=== PATIENT | male | born 1935 | race African-American/Black ===

== ENCOUNTER 2017-06-18 11:42 | Emergency (ER) | payer OTHER ==
[2017-06-18] MEDS ORDERED: NA CHLORIDE 0.9% 1,000 ML ONE (12:05)
--- NOTE | 2017-06-18 12:13 | RAD REPORT ---
EXAM DESCRIPTION: CT - Head Brain Wo Cont - 06/18/2017 12:00 pm CLINICAL HISTORY: Altered consciousness COMPARISON: 03/07/2017 TECHNIQUE: All CT scans are performed using dose optimization technique as appropriate and may inclu de automated exposure control or mA/KV adjustment according to patient size. FINDINGS: No intracranial hemorrhage, hydrocephalus or extra-axial fluid collection.Mild generalized brain atrophy is present with mild periventricular and deep white matter chronic microvascular ische demi changes.No areas of brain edema or evidence of midline shift. The paranasal sinuses and mastoids are clear. The calvarium is intact. IMPRESSION: No acute intracranial abnormality.
[2017-06-18 12:14] LABS: Absolute Lymphocytes (CBC) 0.6 K/uL (0.7-4.9); Absolute Monocytes 0.8 K/uL (0.1-1.3); Absolute Neutrophil 6.1 K/uL (1.8-8.0); Basophils % 0.5 % (0-1.3); Hematocrit 32.3 % (39.6-49.0); Lymphocytes % 8.1 % (15.3-44.8); MCH 28.5 pg (27.0-35.0); MCV 88.1 fL (80-100); MPV 9.3 fL (7.6-11.3); Monocytes % 9.8 % (3.3-12.3); RBC Red Blood Cell Count 3.67 M/uL (4.33-5.43)
[2017-06-18 12:15] LABS: Potassium 3.5 mEq/L (3.6-5.0); Protime INR 1.1
[2017-06-18 12:21] LABS: Albumin 3.9 g/dL (3.2-5.5); Bilirubin Direct 0.1 mg/dL (0-0.2); Bilirubin Total 0.7 mg/dL (0.3-1.2); Magnesium 1.7 mg/dL (1.8-2.5)
[2017-06-18 12:24] LABS: CKMB Creatine Kinase MB 4.9 ng/ml (0.3-4.0)
--- NOTE | 2017-06-18 12:39 | RAD REPORT ---
EXAM DESCRIPTION: RAD - Chest Single View - 06/18/2017 12:30 pm CLINICAL HISTORY: Lethargy, cough, altered mental status COMPARISON: March 07 TECHNIQUE: AP portable chest image was obtained 1215 hours . FINDINGS: Lungs are clear. Heart size is upper normal to slightly enlarged but stable from prior camelia ging. No vascular engorgement. Trachea is midline. Interstitial markings are similar to the compariso n. No measurable pleural effusion and no pneumothorax. No gross bony abnormality seen. No acute aorti c findings suspected. IMPRESSION: No acute cardiopulmonary process. No significant change from comparison.
--- NOTE | 2017-06-18 13:05 | EDPHYS ---
Physician Documentation [facility] Name: Ramon Rothman Age: 82 yrs Sex: Male : 1935 Arrival Date: 06/18/2017 Time: 11:44 Bed 2 Private MD: ED Physician Ashish Haile HPI: 06/18 11:46 This 82 yrs old Black Male presents to ER via Unassigned with complaints of weakness, michelle hypotension and ams. 11:46 hypotension. The patient presents with confusion. Onset: The symptoms/episode michelle began/occurred just prior to arrival, this morning. Possible causes: unknown. Associated signs and symptoms: The patient has no apparent associated signs or symptoms. Patient's baseline: Neuro: alert and fully oriented. Severity of symptoms: At their worst the symptoms were moderate this morning. Historical: - Allergies: 12:00 No Known Allergies; ss - PMHx: 12:00 chronic pain - leg; Diabetes - NIDDM; CVA; ss - PSHx: 12:00 "prostate"; Appendectomy; ss - Immunization history:: Adult Immunizations up to date. - Social history:: Smoking status: Patient/guardian denies using tobacco. - Family history:: not pertinent. ROS: 11:46 Constitutional: Negative for fever, chills, and weight loss, Eyes: Negative for injury, michelle pain, redness, and discharge, ENT: Negative for injury, pain, and discharge, Neck: Negative for injury, pain, and swelling, Cardiovascular: Negative for chest pain, palpitations, and edema, Respiratory: Negative for shortness of breath, cough, wheezing, and pleuritic chest pain, Abdomen/GI: Negative for abdominal pain, nausea, vomiting, diarrhea, and constipation, Back: Negative for injury and pain, : Negative for injury, bleeding, discharge, and swelling, MS/Extremity: Negative for injury and deformity, Skin: Negative for injury, rash, and discoloration, Psych: Negative for depression, anxiety, suicide ideation, homicidal ideation, and hallucinations, Allergy/Immunology: Negative for hives, rash, and allergies, Endocrine: Negative for neck swelling, polydipsia, polyuria, polyphagia, and marked weight changes, Hematologic/Lymphatic: Negative for swollen nodes, abnormal bleeding, and unusual bruising. 11:46 Neuro: Positive for weakness. Exam: 11:46 Constitutional: This is a well developed, well nourished patient who is awake, alert, michelle and in no acute distress. Head/Face: Normocephalic, atraumatic. Eyes: Pupils equal round and reactive to light, extra-ocular motions intact. Lids and lashes normal. Conjunctiva and sclera are non-icteric and not injected. Cornea within normal limits. Periorbital areas with no swelling, redness, or edema. ENT: Nares patent. No nasal discharge, no septal abnormalities noted. Tympanic membranes are normal and external auditory canals are clear. Oropharynx with no redness, swelling, or masses, exudates, or evidence of obstruction, uvula midline. Mucous membranes moist. Neck: Trachea midline, no thyromegaly or masses palpated, and no cervical lymphadenopathy. Supple, full range of motion without nuchal rigidity, or vertebral point tenderness. No Meningismus. Chest/axilla: Normal chest wall appearance and motion. Nontender with no deformity. No lesions are appreciated. Cardiovascular: Regular rate and rhythm with a normal S1 and S2. No gallops, murmurs, or rubs. Normal PMI, no JVD. No pulse deficits. Respiratory: Lungs have equal breath sounds bilaterally, clear to auscultation and percussion. No rales, rhonchi or wheezes noted. No increased work of breathing, no retractions or nasal flaring. Abdomen/GI: Soft, non-tender, with normal bowel sounds. No distension or tympany. No guarding or rebound. No evidence of tenderness throughout. Back: No spinal tenderness. No costovertebral tenderness. Full range of motion. Male : Normal genitalia with no discharge or lesions. Skin: Warm, dry with normal turgor. Normal color with no rashes, no lesions, and no evidence of cellulitis. MS/ Extremity: Pulses equal, no cyanosis. Neurovascular intact. Full, normal range of motion. Neuro: Awake and alert, GCS 15, oriented to person, place, time, and situation. Cranial nerves II-XII grossly intact. Motor strength 5/5 in all extremities. Sensory grossly intact. Cerebellar exam normal. Normal gait. Psych: Awake, alert, with orientation to person, place and time. Behavior, mood, and affect are within normal limits. Vital Signs: 12:00 BP 100 / 56; Pulse 58; Resp 16; Temp 97.6(O); Pulse Ox 100% on R/A; Weight 108.86 kg; ss Height 5 ft. 11 in. (180.34 cm); Pain 0/10; 14:17 BP 111 / 72; Pulse 73; Resp 17; Pulse Ox 97% on R/A; bm6 15:02 BP 113 / 72; Pulse 62; Resp 17; Pulse Ox 98% on R/A; Pain 0/10; ss 12:00 Body Mass Index 33.47 (108.86 kg, 180.34 cm) MDM: 11:44 Patient medically screened. [facility] 11:48 Data reviewed: vital signs, nurses notes, lab test result(s), EKG, radiologic studies, [facility] CT scan, plain films. 06/18 11:45 Order name: Basic Metabolic Panel; Complete Time: 12:31 [facility] 06/18 11:45 Order name: BNP; Complete Time: 12:31 [facility] 06/18 11:45 Order name: CBC with Diff; Complete Time: 12:31 [facility] 06/18 11:45 Order name: Ckmb; Complete Time: 12:31 [facility] 06/18 11:45 Order name: CPK; Complete Time: 12:31 [facility] 06/18 11:45 Order name: LFT's; Complete Time: 12:31 [facility] 06/18 11:45 Order name: Magnesium; Complete Time: 12:31 [facility] 06/18 11:45 Order name: PT-INR; Complete Time: 12:31 [facility] 06/18 11:45 Order name: Ptt, Activated; Complete Time: 12:31 [facility] 06/18 11:45 Order name: Troponin (emerg Dept Use Only); Complete Time: 12:31 [facility] 06/18 11:45 Order name: XRAY Chest (1 view); Complete Time: 12:59 [facility] 06/18 11:45 Order name: CT Head Brain wo Cont; Complete Time: 12:31 [facility] 06/18 11:45 Order name: Urine Culture [facility] 06/18 14:12 Order name: Urine Dipstick--Ancillary (enter results) 06/18 11:45 Order name: EKG; Complete Time: 11:46 [facility] 06/18 11:45 Order name: Cardiac monitoring; Complete Time: 12:09 [facility] 06/18 11:45 Order name: EKG - Nurse/Tech; Complete Time: 12:10 [facility] 06/18 11:45 Order name: IV Saline Lock; Complete Time: 12:10 [facility] 06/18 11:45 Order name: Labs collected and sent; Complete Time: 12:10 [facility] 06/18 11:45 Order name: O2 Per Protocol; Complete Time: 12:10 [facility] 06/18 11:45 Order name: O2 Sat Monitoring; Complete Time: 12:10 [facility] 06/18 11:45 Order name: Urine Dipstick-Ancillary (obtain specimen); Complete Time: 14: [facility] 06/18 13:11 Order name: Echo with Doppler EDMS Administered Medications: 12:09 Drug: NS 0.9% 500 ml Route: IV; Rate: bolus; Site: right antecubital; ss 13:15 Follow up: IV Status: Completed infusion; IV Intake: 500ml ss 13:16 Drug: NS 0.9% 1000 ml Route: IV; Rate: 125 ml/hr; Site: right antecubital; ss 14:12 Follow up: IV Status: Infusion continued upon admission ss 14:07 Drug: Rocephin - (cefTRIAXone) 1 grams Route: IVPB; Infused Over: 30 mins; Site: right ss antecubital; 15:21 Follow up: IV Status: Completed infusion; Completed infusiongiven IVP over two minutes ss per pharmacy protocol 14:12 Drug: Magnesium Sulfate 1 grams Route: IVPB; Infused Over: 1 hrs; Site: right ss antecubital; 15:22 Follow up: IV Status: Completed infusion ss Point of Care Testing: Blood Glucose: 12:00 Blood Glucose: 119 mg/dL; Ranges: Critical Glucose Levels:Adult <50 mg/dl or >400 mg/dl <40 mg/dl or >180 mg/dl Disposition: 06/18/17 14:41 Patient has left against medical advice. Impression: Syncope and collapse, Unspecified kidney failure, Hypotension, Type 2 diabetes mellitus. - Patients states they are going to Home. - Condition is Fair. Follow up: Private Physician; When: Upon discharge from the Emergency Department. - Problem is new. - Symptoms have improved. Signatures: Dispatcher [employer] EDMS Ashish Haile MD MD cha Smirch, Shelby RN RN ss Corrections: (The following items were deleted from the chart) 13:28 13:04 Hospitalization Ordered by Titus Reyes DO for Observation. Preliminary michelle diagnosis is Hypotension; Syncope and collapse; Hypomagnesemia; Unspecified kidney failure; Anemia, unspecified. Bed requested for Telemetry/MedSurg (observation). Status is Observation. Condition is Fair. Problem is new. Symptoms have improved. UTI on Admission? No. michelle 14:01 12:31 E[place] ordered. michelle ss 14:39 13:28 06/18/2017 13:04 Hospitalization Ordered by Titus Reyes DO for Observation. michelle Preliminary diagnosis is Hypotension; Syncope and collapse; Hypomagnesemia; Unspecified kidney failure; Anemia, unspecified; Cystitis. Bed requested for Telemetry/MedSurg (observation). Status is Observation. Condition is Fair. Problem is new. Symptoms have improved. UTI on Admission? Yes. michelle 15:22 14:41 06/18/2017 14:41 Patients has left against medical advice. Impression: Syncope ss and collapse; Unspecified kidney failure; Hypotension; Type 2 diabetes mellitus. Patient states they are going to Home. Condition is Fair. Follow up: Private Physician; When: Upon discharge from the Emergency Department. Problem is new. Symptoms have improved. michelle
--- NOTE | 2017-06-18 13:05 | ER ---
Nurse's Notes [facility] Name: Ramon Rothman Age: 82 yrs Sex: Male : 1935 Arrival Date: 06/18/2017 Time: 11:44 Bed 2 Private MD: Diagnosis: Syncope and collapse;Unspecified kidney failure;Hypotension;Type 2 diabetes mellitus Presentation: 06/18 11:44 Presenting complaint: EMS states: Patient was pulled over on the side of the road in ss vehicle, reportedly "sleeping" per patient. On arrival, EMS reports that patient was awake, lethargic with BP of 68/30 with a pulse of 55 and after 200 mL of NS repeat BP is 100/60. Pt states, "I just got tired so I thought it was unsafe to drive, so I pulled over." Pt states he was on his way to a senior day. Pt has no complaints at this time. Transition of care: patient was not received from another setting of care. Onset of symptoms was June 18, 2017. Initial Sepsis Screen: Does the patient meet any 2 criteria? No. Patient's initial sepsis screen is negative. Does the patient have a suspected source of infection? No. Patient's initial sepsis screen is negative. Note Patient reports he felt just fine yesterday and early this morning, has not eaten, but has taken all of his usual medications. Care prior to arrival: Medication(s) given: NS approx 200 mL IV initiated. 20 GA, in the right antecubital area, Glucose check: 156. 11:44 Acuity: CHANDRIKA 3 ss 11:44 Method Of Arrival: EMS: [facility] Historical: - Allergies: 12:00 No Known Allergies; ss - PMHx: 12:00 chronic pain - leg; Diabetes - NIDDM; CVA; ss - PSHx: 12:00 "prostate"; Appendectomy; ss - Immunization history:: Adult Immunizations up to date. - Social history:: Smoking status: Patient/guardian denies using tobacco. - Family history:: not pertinent. Screenin:02 Abuse screen: Denies threats or abuse. Denies injuries from another. Nutritional ss screening: No deficits noted. Tuberculosis screening: Never had TB. Fall Risk No fall in past 12 months (0 pts). Secondary diagnosis (15 points) CVA, general weakness/ fatigue/ low BP. IV access (20 points). Ambulatory Aid- None/Bed Rest/Nurse Assist (0 pts). Gait- Normal/Bed Rest/Wheelchair (0 pts) Mental Status- Oriented to own ability (0 pts). Assessment: 11:46 General: Appears in no apparent distress. comfortable, Behavior is calm, cooperative, ss Denies fever, feeling ill, fatigue, chills. Pain: Denies pain. Neuro: Level of Consciousness is awake, alert, obeys commands, Oriented to person, place, time, situation, Cut Off Saw Operator are equal bilaterally Speech is normal, Pupils are PERRLA. Cardiovascular: Capillary refill < 3 seconds is brisk in bilateral fingers. Respiratory: Airway is patent Trachea midline Respiratory effort is even, unlabored, Respiratory pattern is regular, symmetrical, Breath sounds are clear in right upper lobe, left upper lobe, right middle lobe, left posterior upper lobe, right posterior upper lobe and right posterior middle lobe Breath sounds are diminished in left posterior lower lobe and right posterior lower lobe Denies cough, shortness of breath pain with respiration, pain with cough, pain with movement. GI: Abdomen is non-distended, Patient currently denies abdominal pain, diarrhea, nausea, vomiting. : No signs and/or symptoms were reported regarding the genitourinary system. EENT: Reddened sclera to R eye. Pt denies pain/ itching to affected eye. Derm: Skin is intact, Skin is dry, Skin is normal, Skin temperature is warm. Musculoskeletal: Circulation, motion, and sensation intact. Range of motion: intact in all extremities, Swelling absent. 11:56 Reassessment: patient to CT at this time via stretcher and hvac controls technicianJacquie sawant. 12:03 Reassessment: Patient back from CT at this time. ss 13:14 Reassessment: Patient appears in no apparent distress at this time. Patient and/or ss family updated on plan of care and expected duration. Pain level reassessed. Patient is alert, oriented x 3, equal unlabored respirations, skin warm/dry/pink. Patient denies pain at this time. Patient states feeling better. Patient states symptoms have improved. 14:00 Reassessment: updated patient on plan of care. Patient states he does not want to be ss admitted whether or not it is the doctor's recommendation. Dr. Haile notified. Patient is polite and cooperative, but simply does not want to be admitted to the hospital for further evaluation. 14:27 Reassessment: Still awaiting for Dr. Haile to update patient on POC to determine whether patient is to stay in hospital or leave AMA. 14:47 Reassessment: Patient insisting on leaving AMA still after speaking with Dr. Haile. Attempted to call Anu () at [phone], no answer and unable to leave VM. 15:02 Reassessment: awaiting for magnesium to finish infusing prior to leaving AMA. Patient ss still attempting to find a ride at this time. Vital Signs: 12:00 BP 100 / 56; Pulse 58; Resp 16; Temp 97.6(O); Pulse Ox 100% on R/A; Weight 108.86 kg; ss Height 5 ft. 11 in. (180.34 cm); Pain 0/10; 14:17 BP 111 / 72; Pulse 73; Resp 17; Pulse Ox 97% on R/A; bm6 15:02 BP 113 / 72; Pulse 62; Resp 17; Pulse Ox 98% on R/A; Pain 0/10; ss 12:00 Body Mass Index 33.47 (108.86 kg, 180.34 cm) Vitals: 11:46 Cardiac Rhythm Assessment Sinus shelton. ED Course: 11:44 Patient arrived in ED. ss 11:44 Ashish Haile MD is Attending Physician. [facility] 11:47 Mayr Rose, GREY is Primary Nurse. ss 11:50 Maintain EMS IV. Dressing intact. Good blood return noted. Site clean \\T\\ dry. Gauge \\T\\ ss site: 20 gauge in R AC. IV is patent, with fluids infusing freely, with good blood return, Flushed right antecubital with 5 ml normal saline. Patient maintains SpO2 saturation greater than 95% on room air. 11:53 EKG done, by medical technologist microbiology. reviewed by Ashish Haile MD. at1 11:58 Triage completed. ss 12:00 CT Head Brain wo Cont In Process Unspecified. EDMS 12:00 CT completed. Patient tolerated procedure well. Patient moved to CT via stretcher. sj Patient moved back from CT. 12:00 Arm band placed on right wrist. ss 12:02 Patient has correct armband on for positive identification. Placed in gown. Bed in low ss position. Call light in reach. Side rails up X2. certified caregiver on. Pulse ox on. NIBP on. 12:31 XRAY Chest (1 view) In Process Unspecified. [facility] 13:03 Titus Reyes DO is Hospitalizing Provider. [facility] 13:31 Bladder scan completed. 64 (post void). 15:20 No provider procedures requiring assistance completed. IV discontinued, intact, ss bleeding controlled, No redness/swelling at site. Pressure dressing applied. Administered Medications: 12:09 Drug: NS 0.9% 500 ml Route: IV; Rate: bolus; Site: right antecubital; ss 13:15 Follow up: IV Status: Completed infusion; IV Intake: 500ml ss 13:16 Drug: NS 0.9% 1000 ml Route: IV; Rate: 125 ml/hr; Site: right antecubital; ss 14:12 Follow up: IV Status: Infusion continued upon admission 14:07 Drug: Rocephin - (cefTRIAXone) 1 grams Route: IVPB; Infused Over: 30 mins; Site: right ss antecubital; 15:21 Follow up: IV Status: Completed infusion; Completed infusiongiven IVP over two minutes ss per pharmacy protocol 14:12 Drug: Magnesium Sulfate 1 grams Route: IVPB; Infused Over: 1 hrs; Site: right ss antecubital; 15:22 Follow up: IV Status: Completed infusion Point of Care Testing: Blood Glucose: 12:00 Blood Glucose: 119 mg/dL; Ranges: Intake: 13:15 IV: 500ml; Total: 500ml. Outcome: 13:04 Decision to Hospitalize by Provider. [facility] 15:20 AMA AMA form signed 15:20 Condition: stable 15:20 Discharge instructions given to patient, Instructed on follow up and referral plans. Demonstrated understanding of instructions, follow-up care. 15:22 Patient left the ED. ss Addendum: 06/21/2017 08:12 Addendum: Culture Results: Positive urine culture. No further action required. Other: i w pt had no urinary symptoms at time of service, pt was advised to remain in hospital for further evaluation and refused, pt left AMA. Signatures: Dispatcher [employer] EDAR Ashish Haile MD MD cha Jones, Susan Lety Domínguez RN RN Mary Rose RN RN Bella cifuentes, dental front office assistant EKG Tat1 Hardik Wright [email or web address]
[2017-06-18] MEDS ORDERED: MAGNESIUM SULFATE 1 gm IVPB 1 GM/100 ML BAG IV ONE (14:03)
[2017-06-18] MEDS ORDERED: CEFTRIAXONE/SWI 1gm 1 GM/10 ML SYR ONE (14:04)
--- NOTE | 2017-06-18 14:35 | EKG ---
Test Date: 2017-06-18 Test Time: 11:35:46 Quality Management Coordinator: QUINN MEASUREMENT RESULTS: Intervals: Rate: 55 LA: 180 QRSD: 130 QT: 498 QTc: 476 [place]: P: 37 LA: 180 QRS: -22 T: 67 INTERPRETIVE STATEMENTS: Sinus bradycardia Nonspecific intraventricular block Abnormal ECG Compared to ECG 03/08/2017 07:07:36 Sinus rhythm no longer present Left bundle-branch block no longer present Electronically Signed On 06-18-17 14:33:42 CDT by González Laurent
[2017-06-18 15:48] VITALS: TEMP 97.6
[2017-06-18 15:51] VITALS: BP 113/72; O2SAT 98
[2017-06-18 16:08] LABS: Urine Blood NEGATIVE (NEG); Urine Glucose NEGATIVE (NEG); Urine Protein TRACE (NEG)
--- NOTE | 2017-06-19 08:08 | ECHO ---
HEIGHT: 5 ft 11 in WEIGHT: 240 lb 0 oz DATE OF STUDY: 06/18/[address]: 2-DIMENSIONAL: YES M.MODE: YES DOPPLER: YES COLOR FLOW: YES TDS: NO PORTABLE: NO DEFINITY: NO BUBBLE STUDY: NO DIAGNOSIS: CHEST PAIN CARDIAC HISTORY: CATHERIZATION: NO SURGERY: NO PROSTHETIC VALVE: NO PACEMAKER: NO MEASUREMENTS (cm) DIASTOLIC (NORMALS) SYSTOLIC (NORMALS) IVSd 1.4 (0.6-1.2) LA Diam 3.5 (1.9-4.0) LVEF 50-55% LVIDd 5.1 (3.5-5.7) LVIDs (2.0-3.5) %FS % LVPWd 1.2 (0.6-1.2) Ao Diam 3.2 (2.0-3.7) 2 DIMENSIONAL ASSESSMENT: RIGHT ATRIUM: NORMAL LEFT ATRIUM: NORMAL RIGHT VENTRICLE: NORMAL LEFT VENTRICLE: LEFT VENTRICULAR HYPERTROPHY TRICUSPID VALVE: NORMAL MITRAL VALVE: NORMAL PULMONIC VALVE: NORMAL AORTIC VALVE: NORMAL PERICARDIAL EFFUSION: NONE AORTIC ROOT: NORMAL LEFT VENTRICULAR WALL MOTION: NORMAL DOPPLER/COLOR FLOW: MILD MITRAL AND TRICUSPID REGURGITATION. NORMAL RIGHT VENTRICULAR SYSTOLIC PRESSURE. IMPAIRED LEFT VENTRICULAR RELAXATION. COMMENTS: NORMAL LEFT VENTRICULAR EJECTION FRACTION. LEFT VENTRIVULAR HYPERTROPHY. MILD MITRAL AND TRICUSPID REGURGITATION. TECHNOLOGIST: ARNULFO GALLAGHER RDCS
== END 2017-06-18 15:22 | disposition left against medical advice (07) ==
LOC: ER 11:42 → UNDOADMOB 13:06 → ERHOLD 13:06 → ER 15:22
DX: I95.9 Hypotension, unspecified (principal); R55 Syncope and collapse; N19 Unspecified kidney failure; E11.9 Type 2 diabetes mellitus without complications; Z86.73 Personal history of transient ischemic attack (TIA), and cerebral infarction without residual deficits
CPT/HCPCS: 36415; 70450; 71045; 80048; 80076; 81003; 82550; 82553; 83735; 83880; 84484; 85025; 85610; 85730; 87086; 87088; 93005; 93306; 96361; 96365; 99285; J0696; J3475; J7030; 82962; 87077; 87186; 96368

== ENCOUNTER 2017-07-26 10:57 | Emergency (ER) | payer OTHER ==
[2017-07-26 11:59] LABS: Absolute Lymphocytes (CBC) 0.6 K/uL (0.7-4.9); Absolute Monocytes 0.9 K/uL (0.1-1.3); Absolute Neutrophil 7.9 K/uL (1.8-8.0); Basophils % 0.3 % (0-1.3); Eosinophils % 2.1 % (0-4.4); Hematocrit 30.7 % (39.6-49.0); Lymphocytes % 6.2 % (15.3-44.8); MCH 28.9 pg (27.0-35.0); MCV 87.6 fL (80-100); MPV 9.6 fL (7.6-11.3); Monocytes % 9.1 % (3.3-12.3)
[2017-07-26 12:05] LABS: Protime INR 1.07
--- NOTE | 2017-07-26 12:13 | RAD REPORT ---
EXAM DESCRIPTION: RAD - Chest Single View - 07/26/2017 12:04 pm CLINICAL HISTORY: Chest pain. COMPARISON: 06/18/2017 FINDINGS: Portable technique limits examination quality. The lungs are grossly clear. The heart is normal in size. No displaced fractures. IMPRESSION: No acute intrathoracic process suspected.
[2017-07-26 12:21] LABS: Albumin 3.7 g/dL (3.2-5.5); Bilirubin Direct 0.1 mg/dL (0-0.2); Bilirubin Total 0.7 mg/dL (0.3-1.2); Magnesium 2.2 mg/dL (1.8-2.5); Protein, Total 6.7 g/dL (6.0-8.3)
[2017-07-26 12:25] LABS: CKMB Creatine Kinase MB 3.4 ng/ml (0.3-4.0)
[2017-07-26 13:10] LABS: Potassium 2.8 mEq/L (3.6-5.0)
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
[2017-07-26] MEDS ORDERED: POTASSIUM CL SA 10 MEQ TAB PO ONE (13:38)
[2017-07-26] MEDS ORDERED: POTASSIUM 25 MEQ EFFERV TAB ONE (13:39)
[2017-07-26 13:49] VITALS: TEMP 97.2; O2SAT 97
[2017-07-26 13:50] VITALS: BP 90/47
--- NOTE | 2017-07-27 07:58 | EKG ---
Test Date: 2017-07-26 Test Time: 10:52:41 Overhead Crane Operator: MEASUREMENT RESULTS: Intervals: Rate: 67 MS: 112 QRSD: 180 QT: 524 QTc: 553 [place]: P: MS: 112 QRS: -42 T: 80 INTERPRETIVE STATEMENTS: Normal sinus rhythm Left axis deviation Left bundle branch block Abnormal ECG Compared to ECG 06/18/2017 11:35:46 Left-axis deviation now present Left bundle-branch block now present Sinus bradycardia no longer present Electronically Signed On 07-27-17 07:55:13 CDT by González Laurent
== END 2017-07-26 13:45 | disposition home or self-care (01) ==
LOC: ER 10:57
DX: N19 Unspecified kidney failure (principal); E87.6 Hypokalemia
CPT/HCPCS: 36415; 71045; 80048; 80076; 82550; 82553; 82962; 83735; 83880; 84484; 85025; 85610; 85730; 93005; 99284

== ENCOUNTER 2018-05-19 20:24 | Observation (INO) | payer OTHER ==
--- OUTSIDE RECORDS SUMMARY | 2018-05-19 20:26 | XMS REPORT ---
:1935 Author Organization [facility] Address [address] [place] [address] [address] [place] [address] Care Team Providers Name Role Phone Unavailable Unavailable Unavailable Problems This patient has no known problems. Allergies, Adverse Reactions, Alerts Allergy Allergy Status Severity Reaction(s) Onset Inactive Treating Comments Name Type Date Date Clinician No Known DA Active U 2013-03 Allergies -28 00:00:0 0 Medications This patient has no known medications.
[2018-05-19] MEDS ORDERED: MIDAZOLAM HCL 2 MG/2 ML INJ ONE (20:59)
[2018-05-19] MEDS ORDERED: NA CHLORIDE 0.9% 1,000 ML ONE ×2 (21:25→23:40)
[2018-05-19 21:28] LABS: Absolute Lymphocytes (CBC) 0.7 K/uL (0.7-4.9); Absolute Monocytes 0.5 K/uL (0.1-1.3); Absolute Neutrophil 7.5 K/uL (1.8-8.0); Basophils % 0.5 % (0-1.3); Eosinophils % 1.6 % (0-4.4); Hematocrit 29.8 % (39.6-49.0); Lymphocytes % 8.2 % (15.3-44.8); MPV 8.9 fL (7.6-11.3); Monocytes % 5.8 % (3.3-12.3); RBC Red Blood Cell Count 3.52 M/uL (4.33-5.43)
[2018-05-19 21:33] LABS: Albumin 3.7 g/dL (3.4-5.0); Bilirubin Direct 0.3 mg/dL (0-0.2); Bilirubin Total 0.8 mg/dL (0.2-1.0); CKMB Creatine Kinase MB 3.5 ng/mL (0.3-3.6); Potassium 3.4 mmol/L (3.5-5.1); Protein, Total 8.4 g/dL (6.4-8.2); Troponin (Emerg Dept Use Only) 0.11 ng/mL (0.0-0.045)
--- NOTE | 2018-05-19 21:34 | ER ---
Nurse's Notes [facility] Name: Ramon Rothman Age: 82 yrs Sex: Male : 1935 Arrival Date: 05/19/2018 Time: 20:27 Bed 3 Private MD: Diagnosis: Lobar pneumonia, unspecified organism;Atrial fibrillation and flutter;Sepsis, unspecified organism Presentation: 05/19 20:40 Presenting complaint: Patient states: SOB X1 week, increased tonight. Transition of ak1 care: patient was not received from another setting of care. Onset of symptoms is unknown. Risk Assessment: Do you want to hurt yourself or someone else? Patient reports no desire to harm self or others. Care prior to arrival: None. 20:40 Method Of Arrival: Wheelchair ak1 20:40 Acuity: CHANDRIKA 1 ak1 20:45 Initial Sepsis Screen: Does the patient meet any 2 criteria? Systolic BP < 90 mmHg. HR ao > 90 bpm. Yes Does the patient have a suspected source of infection? No. Patient's initial sepsis screen is negative. Triage Assessment: 20:41 General: Appears distressed, slender, Behavior is calm, cooperative. Pain: Denies pain. ak1 22:38 Respiratory: Reports shortness of breath at rest Onset: The symptoms/episode ao began/occurred at an unknown time. the patient has severe shortness of breath. Historical: - Allergies: 20:41 No Known Allergies; ak1 - PMHx: 20:41 chronic pain - leg; CVA; Diabetes - NIDDM; ak1 - PSHx: 20:41 "prostate"; Appendectomy; unknown cardiac sx; ak1 - Immunization history:: Adult Immunizations unknown. - Social history:: Smoking status: Patient/guardian denies using tobacco. - Ebola Screening: : No symptoms or risks identified at this time. Screenin:36 Abuse screen: Denies threats or abuse. Denies injuries from another. Nutritional ao screening: No deficits noted. Tuberculosis screening: No symptoms or risk factors identified. Fall Risk Secondary diagnosis (15 points) IV access (20 points). Ambulatory Aid- None/Bed Rest/Nurse Assist (0 pts). Gait- Weak (10 pts.). Mental Status- Overestimates/Forgets Limitations (15 pts.). Assessment: 20:45 General: Appears distressed, well groomed, well developed, Behavior is cooperative, ao drowsy, restless. Pain: Complains of pain in chest Quality of pain is described as pressure. Neuro: Level of Consciousness is awake, alert, obeys commands, Oriented to person, place, situation, Moves all extremities. Full function Weakness Speech is normal. Cardiovascular: Reports chest pain, shortness of breath, Capillary refill is > 3 seconds is sluggish Clubbing of nail beds is present Rhythm is SVT. Respiratory: Airway is patent Trachea midline Respiratory effort is labored, Breath sounds are diminished bilaterally. GI: Abdomen is non-distended. : No signs and/or symptoms were reported regarding the genitourinary system. EENT: No signs and/or symptoms were reported regarding the EENT system. Derm: Skin is clammy, Skin is normal, Skin temperature is warm. Musculoskeletal: Range of motion: limited in all extremities. 20:50 Reassessment: Patient was cardioverted by Dr Meyers. Assisted by this nurse, GREY Burch, deven Chen RN and [facility]. Patient tolerated well. 21:20 Reassessment: Unable to get Blood cultures. Lab was called. ao 21:50 Reassessment: Patient appears in no apparent distress at this time. Patient and/or ao family updated on plan of care and expected duration. Pain level reassessed. Patient to be admitted to the hospital. Dr Sanders at bedside assessing patient. 22:35 Reassessment: Patient appears in no apparent distress at this time. Patient and/or ao family updated on plan of care and expected duration. Pain level reassessed. Waiting on room assignment. 23:34 Reassessment: Patient appears in no apparent distress at this time. Patient and/or ao family updated on plan of care and expected duration. Pain level reassessed. Report has been called. Was told bed assigned still duty and it's been clean. Patient to be taking to his room when room is clean. Vital Signs: 20:40 BP 82 / 65; Pulse 167; Resp 22; Temp 99.4(TE); Pulse Ox 99% on R/A; Weight 89.36 kg ak1 (R); Height 5 ft. 10 in. (177.80 cm) (R); Pain 0/10; 20:45 BP 114 / 82; Pulse 172; Resp 23; Pulse Ox 100% on Non-rebreather mask; bb 20:52 BP 117 / 83; Pulse 110; Resp 24; Pulse Ox 100% on Non-rebreather mask; bb 21:30 BP 120 / 78; Pulse 95; Resp 18; Pulse Ox 97% on NC; ao 22:09 BP 99 / 72; Pulse 102; Resp 18; Pulse Ox 98% on 2 lpm NC; ao 22:23 BP 117 / 82; Pulse 110; Resp 22; Temp 98.2(R); ao 22:35 BP 118 / 79; Pulse 103; Resp 13; Pulse Ox 100% on 3 lpm NC; ao 23:00 BP 116 / 84; Pulse 103; Resp 21; Pulse Ox 100% on 2 lpm NC; ao 23:34 BP 116 / 87; Pulse 101; Resp 20; Pulse Ox 98% on 3 lpm NC; ao 20:40 Body Mass Index 28.27 (89.36 kg, 177.80 cm) ak1 ED Course: 20:27 Patient arrived in ED. es 20:40 Rick Meyers MD is Attending Physician. gs 20:40 Triage completed. ak1 20:41 Arm band placed on Patient placed in an exam room, on a stretcher, on nuisance wildlife specialist, ak1 on pulse oximetry, Patient notified of wait time. 20:45 Patient has correct armband on for positive identification. admissions rn on. Pulse ao ox on. NIBP on. 20:45 Initial lab(s) drawn, by me, sent to lab. Inserted saline lock: 20 gauge in right bb antecubital area, using aseptic technique. Blood collected. 20:51 Assist provider with cardioversion (synchronized) with 150 joules X 1. Performed by endy Meyers MD Monitored with nuisance wildlife specialist, pulse ox, Post procedure rhythm is sinus tachycardia. 21:13 Donte Hartman, GREY is Primary Nurse. ao 21:20 Chest Single View XRAY In Process Unspecified. EDMS 21:33 Jayy Link MD is Hospitalizing Provider. gs 22:06 Notified ED physician of a critical lab result(s). Lactate 3.8. lp1 23:32 Lactate Sent. ao 23:34 Patient admitted, IV remains in place. ao Administered Medications: 20:48 Drug: Versed 2.5 mg Route: IVP; Site: right antecubital; ao 23:31 Follow up: Response: No adverse reaction ao 21:16 Drug: NS 0.9% 1000 ml Route: IV; Rate: 1 bolus; Site: right antecubital; ao 23:31 Follow up: IV Status: Completed infusion; IV Intake: 1000ml ao 22:00 Drug: Cefepime 1 grams Route: IVPB; Rate: 200 ml/hr; Infused Over: 30 mins; Site: right ao antecubital; 23:31 Follow up: IV Status: Completed infusion ao Intake: 23:31 IV: 1000ml; Total: 1000ml. ao Outcome: 21:34 Decision to Hospitalize by Provider. gs 23:32 Admitted to Tele accompanied by nurse, room 409, Report called to GREY Ortez ao 23:32 Condition: stable 23:32 Instructed on the need for admit. 23:53 Patient left the ED. ao Signatures: Dispatcher [employer] Yamila Mccollum Brenda, RN RN bb Kiersten Vides RN RN lp1 Juliann Gomez RN RN ak1 Donte Hartman RN RN ao Rick Meyers MD MD gs Corrections: (The following items were deleted from the chart) 22:28 20:50 Versed 2.5 mg IVP in right antecubital ao ao
--- NOTE | 2018-05-19 21:34 | EDPHYS ---
Physician Documentation [facility] Name: Ramon Rothman Age: 82 yrs Sex: Male : 1935 Arrival Date: 05/19/2018 Time: 20:27 Bed 3 Private MD: ED Physician Rick Meyers HPI: 05/19 21:24 This 82 yrs old Black Male presents to ER via Wheelchair with complaints of Breathing gs Difficulty. 21:24 The patient has shortness of breath at rest. Onset: The symptoms/episode began/occurred gs acutely. Duration: The symptoms are continuous, and are steadily getting worse. The patient's shortness of breath has no apparent modifying factors. Associated signs and symptoms: Pertinent negatives: chest pain. Severity of symptoms: At their worst the symptoms were incapacitating in the emergency department the symptoms are unchanged. The patient has experienced similar episodes in the past, a few times. The patient has not recently seen a physician. Historical: - Allergies: 20:41 No Known Allergies; ak1 - PMHx: 20:41 chronic pain - leg; CVA; Diabetes - NIDDM; ak1 - PSHx: 20:41 "prostate"; Appendectomy; unknown cardiac sx; ak1 - Immunization history:: Adult Immunizations unknown. - Social history:: Smoking status: Patient/guardian denies using tobacco. - Ebola Screening: : No symptoms or risks identified at this time. ROS: 21:25 Unable to obtain ROS due to patient distress. gs Exam: 21:25 Head/Face: Normocephalic, atraumatic. Eyes: Pupils equal round and reactive to light, gs extra-ocular motions intact. Lids and lashes normal. Conjunctiva and sclera are non-icteric and not injected. Cornea within normal limits. Periorbital areas with no swelling, redness, or edema. ENT: Nares patent. No nasal discharge, no septal abnormalities noted. Tympanic membranes are normal and external auditory canals are clear. Oropharynx with no redness, swelling, or masses, exudates, or evidence of obstruction, uvula midline. Mucous membranes moist. Neck: Trachea midline, no thyromegaly or masses palpated, and no cervical lymphadenopathy. Supple, full range of motion without nuchal rigidity, or vertebral point tenderness. No Meningismus. Chest/axilla: Normal chest wall appearance and motion. Nontender with no deformity. No lesions are appreciated. 21:25 Abdomen/GI: Soft, non-tender, with normal bowel sounds. No distension or tympany. No guarding or rebound. No evidence of tenderness throughout. Back: No spinal tenderness. No costovertebral tenderness. Full range of motion. Skin: Warm, dry with normal turgor. Normal color with no rashes, no lesions, and no evidence of cellulitis. Neuro: Awake and alert, GCS 15, oriented to person, place, time, and situation. Cranial nerves II-XII grossly intact. Motor strength 5/5 in all extremities. Sensory grossly intact. Cerebellar exam normal. Normal gait. 21:25 Constitutional: The patient appears alert, awake, in obvious distress, severely distressed. 21:25 Cardiovascular: Rate: tachycardic, Rhythm: regular, Pulses: thready, Edema: 2+ edema to level of left midcalf and right midcalf. 21:25 ECG was reviewed by the Attending Physician. 21:25 Respiratory: severe repiratory distress is noted, Respirations: tachypnea. 21:25 Musculoskeletal/extremity: Perfusion: the patient is normally perfused throughout, Edema, 2+ to the left midcalf, left ankle, right midcalf and right ankle is noted. Vital Signs: 20:40 BP 82 / 65; Pulse 167; Resp 22; Temp 99.4(TE); Pulse Ox 99% on R/A; Weight 89.36 kg ak1 (R); Height 5 ft. 10 in. (177.80 cm) (R); Pain 0/10; 20:45 BP 114 / 82; Pulse 172; Resp 23; Pulse Ox 100% on Non-rebreather mask; bb 20:52 BP 117 / 83; Pulse 110; Resp 24; Pulse Ox 100% on Non-rebreather mask; bb 21:30 BP 120 / 78; Pulse 95; Resp 18; Pulse Ox 97% on NC; ao 22:09 BP 99 / 72; Pulse 102; Resp 18; Pulse Ox 98% on 2 lpm NC; ao 22:23 BP 117 / 82; Pulse 110; Resp 22; Temp 98.2(R); ao 22:35 BP 118 / 79; Pulse 103; Resp 13; Pulse Ox 100% on 3 lpm NC; ao 23:00 BP 116 / 84; Pulse 103; Resp 21; Pulse Ox 100% on 2 lpm NC; ao 23:34 BP 116 / 87; Pulse 101; Resp 20; Pulse Ox 98% on 3 lpm NC; ao 20:40 Body Mass Index 28.27 (89.36 kg, 177.80 cm) ak1 Procedures: 21:25 Cardioversion: (synchronized) for treatment of atrial tach, with 150 joules X 1. Post gs procedure rhythm is sinus rhythm, the patient tolerated the procedure well. Moderate sedation: Pre-procedure assessment: ASA physical classification: II - mild/mod systemic disease that does not interfere with daily routines, Airway assessment: able to hyperextend neck, Mallampati classification of tongue size: II - faucial pillars and soft palate can be visualized, but uvula is masked by the base of the tongue, Monitoring during procedure: classroom monitor, continuous pulse oximetry, nurse at bedside at all times, Medications employed: Versed, 2.5 mg(s), Post-procedure assessment: Respiratory status: even and unlabored. MDM: 20:55 Patient medically screened. gs 21:25 Differential diagnosis: CHF exacerbation, Chronic Obstructive Pulmonary Disease gs Myocardial Infarction pneumonia, PSVT,AT,VT. Data reviewed: vital signs, nurses notes, lab test result(s), EKG, radiologic studies. Counseling: I had a detailed discussion with the patient and/or guardian regarding: the historical points, exam findings, and any diagnostic results supporting the discharge/admit diagnosis, the need for further work-up and treatment in the hospital. 05/19 20:41 Order name: Basic Metabolic Panel; Complete Time: 21:34 05/19 20:41 Order name: Blood Culture Adult (2) 05/19 20:41 Order name: CBC with Diff; Complete Time: 10:16 05/19 20:41 Order name: Ckmb; Complete Time: 21:34 05/19 20:41 Order name: CPK; Complete Time: 21:34 05/19 20:41 Order name: Lactate; Complete Time: 10:16 05/19 20:41 Order name: LFT's; Complete Time: 21:34 05/19 20:41 Order name: Lipase; Complete Time: 21:34 05/19 20:41 Order name: Procalcitonin; Complete Time: 10:16 05/19 20:41 Order name: Protime (+inr); Complete Time: 10:16 05/19 20:41 Order name: Ptt, Activated; Complete Time: 10:16 05/19 20:41 Order name: Troponin (emerg Dept Use Only); Complete Time: 21:34 gs 05/19 20:41 Order name: Urine Microscopic Only 05/19 21:34 Order name: Flu; Complete Time: 10:16 05/19 20:41 Order name: Chest Single View XRAY; Complete Time: 10:16 05/19 20:41 Order name: Cardiac monitoring; Complete Time: 22:31 05/19 20:41 Order name: EKG - Nurse/Tech; Complete Time: 22:31 05/19 20:41 Order name: IV Saline Lock - Large Bore; Complete Time: 22:30 05/19 20:41 Order name: Labs collected and sent; Complete Time: 22:30 05/19 20:41 Order name: O2 Per Protocol; Complete Time: 22:30 05/19 20:41 Order name: O2 Sat Monitoring; Complete Time: 22:30 05/19 22:34 Order name: CBC Smear Scan; Complete Time: 10:16 EDAK 05/19 23:20 Order name: Lactate ao EC:25 Rate is 170 beats/min. Rhythm is regular. QRS interval is prolonged. Clinical gs impression: WIDE COMPLEX TACHYCARDIA. Interpreted by me. Administered Medications: 20:48 Drug: Versed 2.5 mg Route: IVP; Site: right antecubital; ao 23:31 Follow up: Response: No adverse reaction ao 21:16 Drug: NS 0.9% 1000 ml Route: IV; Rate: 1 bolus; Site: right antecubital; ao 23:31 Follow up: IV Status: Completed infusion; IV Intake: 1000ml ao 22:00 Drug: Cefepime 1 grams Route: IVPB; Rate: 200 ml/hr; Infused Over: 30 mins; Site: right ao antecubital; 23:31 Follow up: IV Status: Completed infusion ao Disposition: 21:25 Critical Care:. gs Disposition: 05/19/18 21:34 Hospitalization ordered by Jayy Link for Inpatient Admission. Preliminary diagnosis are Lobar pneumonia, unspecified organism, Atrial fibrillation and flutter, Sepsis, unspecified organism. - Bed requested for Telemetry/MedSurg (Inpatient). - Status is Inpatient Admission. ao - Condition is Stable. - Problem is new. - Symptoms have improved. UTI on Admission? Yes Critical care time excluding procedures: 21:25 Critical care time: Bedside Care: 10 minutes, Consultation: 10 minutes, Family gs Intervention: 10 minutes. Total time: 30 minutes Signatures: Dispatcher [employer] EDMS Tatianna Joyner RN Juliann Gordillo RN RN ak1 Donte Hartman RN GREY ao Rick Meyers MD MD Corrections: (The following items were deleted from the chart) 22:44 21:34 Hospitalization Ordered by Jayy Link MD for Inpatient Admission. Preliminary diagnosis is Lobar pneumonia, unspecified organism; Atrial fibrillation and flutter; Sepsis, unspecified organism. Bed requested for Telemetry/MedSurg (Inpatient). Status is Inpatient Admission. Condition is Stable. Problem is new. Symptoms have improved. UTI on Admission? Yes. 22:50 20:41 Accucheck ordered. ao 23:32 20:41 Urine Dipstick-Ancillary ordered. ao 23:53 22:44 05/19/2018 21:34 Hospitalization Ordered by Jayy Link MD for Inpatient ao Admission. Preliminary diagnosis is Lobar pneumonia, unspecified organism; Atrial fibrillation and flutter; Sepsis, unspecified organism. Bed requested for Telemetry/MedSurg (Inpatient). Status is Inpatient Admission. Condition is Stable. Problem is new. Symptoms have improved. UTI on Admission? Yes. mw
[2018-05-19 22:13] LABS: Protime INR 1.22
[2018-05-19] MEDS ORDERED: CEFEPIME 1 GM/100 ML BAG IV ONE (22:15)
[2018-05-19 22:33] LABS: Anisocytosis 1+; Blood Morphology Comment NOTED (NOT SEEN); Platelet Estimate ADEQ; Urine White Blood Cell Casts OK
[2018-05-20] MEDS ORDERED: ACETAMINOPHEN 500 MG TAB PO PRN (00:29)
[2018-05-20] MEDS ORDERED: NA CHLORIDE 0.9% 1,000 ML IV SCH (00:29)
[2018-05-20 01:14] VITALS: BMI 27.3
--- NOTE | 2018-05-20 03:29 | P.HP ---
Certification for Inpatient Patient admitted to: Inpatient With expected LOS: >2 Midnights Practitioner: I am a practitioner with admitting privileges, knowledge of patient current condition, hospital course, and medical plan of care. Services: Services provided to patient in accordance with Admission requirements found in Title 42 Section 412.3 of the Code of Federal Regulations Patient History Date of Service: 05/19/18 Reason for admission: wide complex tachycardia, atrial flutter History of Present Illness: Mr Rothman is an 82 years old male with history of CVA, HTN, DM II, he is a poor historian, who states that about 4 days ago start with progressive SOB associated with some cough. He denied fever, but his daughter says that he has had chills and was warmth to touch. He had an episode of chest pain today, lasting for a few minutes, relieving with Nitro, according to his statement, he has chronic angina. He was brought to ED today, since his SOB got worse. At arrival his temp was 99.4 F O2 sat 99% on RA, EKG shows wide complex tachycardia at about 150 bpm, it was regular, possible A.flutter, BP 84/67. In ER he as successfully cardioverted with 1 electric shock. Then, his symptoms gradually improved. Lab work, shows normal WBC count with elevated lactate and procalcitonin, trop I was elevated as well, worsening renal function. CXR possible left lower lobe infiltrate, awaiting radiology report. Allergies No Known Allergies Allergy (Verified 05/20/18 00:29) Home medications list reviewed: Yes Home Medications: Allopurinol 1 tab PO DAILY 03/09/17 Benzonatate [Tessalon Perle*] 200 mg PO BIDP PRN #10 cap 03/09/17 Doxazosin Mesylate [Cardura] 1 tab PO DAILY 03/09/17 Hydrocodone/Acetaminophen [Hydrocodone-Acetamin 10-325 mg] 1 tab PO Q8HP PRN Hydroxychloroquine [Plaquenil*] 1 tab PO DAILY 03/09/17 Isosorbide Mononitrate [Isosorbide Mononitrate ER] 1 tab PO DAILY 03/09/17 Pantoprazole [Protonix Tab*] 1 tab PO DAILY 03/09/17 hydroCHLOROthiazide [Hydrochlorothiazide] 1 tab PO DAILY 03/09/17 predniSONE [Prednisone*] 1 tab PO DAILY 03/09/17 - Past Medical/Surgical History Has patient received pneumonia vaccine in the past: Yes Diabetic: No -: HYPERTENSION -: NIDDM -: CVA -: BPH -: CHRONIC LEG PAIN -: CARDIAC STENT -: APPENDECTOMY -: PROSTATE SURGERY - Family History Family History: Reviewed- Non-Contributory - Social History Smoking Status: Never smoker Alcohol use: No CD- Drugs: No Caffeine use: No Place of Residence: Home Review of Systems 10-point ROS is otherwise unremarkable Physical Examination - Vital Signs Temperature: 98.2 F Blood Pressure: 116/87 Pulse: 101 Respirations: 20 - Physical Exam General: Alert, In no apparent distress HEENT: Atraumatic, PERRLA, Mucous membr. moist/pink, EOMI, Sclerae nonicteric Neck: Supple, 2+ carotid pulse no bruit, No LAD, Without JVD or thyroid abnormality Respiratory: Normal air movement, Crackles/rales (left base crackles) Cardiovascular: Regular rate/rhythm, Normal S1 S2 Gastrointestinal: Normal bowel sounds, No tenderness Musculoskeletal: No tenderness Integumentary: No rashes Neurological: Normal speech, Normal strength at 5/5 x4 extr, Normal tone, Normal affect Lymphatics: No axilla or inguinal lymphadenopathy - Studies Laboratory Data (last 24 hrs) 05/19/18 20:45: PT 14.3 H, INR 1.22, APTT 29.4 05/19/18 20:45: WBC 8.9, Hgb 9.7 L, Hct 29.8 L, Plt Count 281 05/19/18 20:45: Sodium 142, Potassium 3.4 L, BUN 52 H, Creatinine 3.57 H, Glucose 169 H, Total Bilirubin 0.8, AST 17, ALT 20, Alkaline Phosphatase 80, Lipase 95 Microbiology Data (last 24 hrs): 05/19/18 21:40 Nasopharnyx Influenza Type A Antigen Screen - Final 05/19/18 21:40 Nasopharnyx Influenza Type B Antigen Screen - Final Assessment and Plan - Problems (Diagnosis) (1) Acute kidney injury superimposed on CKD Current Visit: Yes Status: Acute (2) Wide-complex tachycardia Current Visit: Yes Status: Acute (3) Chest pain Current Visit: Yes Status: Acute Qualifiers: Chest pain type: unspecified Qualified Code(s): R07.9 - Chest pain, unspecified (4) CAD (coronary artery disease) Current Visit: No Status: Acute Qualifiers: Coronary Disease-Associated Artery/Lesion type: [place] artery [place] vs. transplanted heart: [place] heart Associated angina: with stable angina Qualified Code(s): I25.118 - Atherosclerotic heart disease of [place] coronary artery with other forms of angina pectoris (5) LBBB (left bundle branch block) Current Visit: No Status: Acute (6) HTN (hypertension) Onset Date: 03/08/17 Current Visit: No Status: Chronic Qualifiers: Hypertension type: essential hypertension Qualified Code(s): I10 - Essential (primary) hypertension - Plan The patient will be admitted due to wide complex tachycardia, possible a.flutter , as baseline he has LBBB. He was successfully cardioverted. He also has possible pneumonia on left lower lobe, awaiting radiology report. Will start empiric antibiotic therapy, will resume his home medication once verified, consult cardiology team. - Advance Directives Does patient have a Living Will: No Does patient have a Durable POA for Healthcare: No - Code Status/Comfort Care Code Status: Full Code
[2018-05-20 05:56] LABS: Absolute Lymphocytes (CBC) 0.6 K/uL (0.7-4.9); Absolute Monocytes 0.6 K/uL (0.1-1.3); Absolute Neutrophil 5.8 K/uL (1.8-8.0); Basophils % 0.4 % (0-1.3); Eosinophils % 2.2 % (0-4.4); Hematocrit 25.1 % (39.6-49.0); MPV 8.5 fL (7.6-11.3); Monocytes % 8.5 % (3.3-12.3); RBC Red Blood Cell Count 2.99 M/uL (4.33-5.43)
[2018-05-20 06:27] LABS: Potassium 3.5 mmol/L (3.5-5.1)
[2018-05-20] MEDS ORDERED: POTASSIUM CL SA 10 MEQ TAB PO ONE (07:27)
[2018-05-20] MEDS: INSULIN -REGULAR HUMAN 50 UNIT/0.5 ML ML SQ SCH ×4 (07:30→21:00)
--- NOTE | 2018-05-20 08:27 | RAD REPORT ---
EXAM DESCRIPTION: Kayley Single View05/19/2018 9:22 pm CLINICAL HISTORY: Shortness of breath COMPARISON: July 2017 FINDINGS: Upper lobe vessels are prominent indicative of pulmonary venous hypertension The lungs appear clear of acute infiltrate. The heart is moderately to markedly enlarged
[2018-05-20] MEDS: ASPIRIN 81 MG CHEWABLE TABLET PO SCH (08:42)
[2018-05-20] MEDS ORDERED: AZITHROMYCIN IV 500 MG in NA CHLORIDE 0.9% 250 ML IVPB SCH (09:00)
[2018-05-20] MEDS ORDERED: CEFTRIAXONE 1 GM/NS 50 ML 1 GM/50 ML BAG IV SCH (09:00)
[2018-05-20] MEDS ORDERED: CEFTRIAXONE/SWI 1gm 1 GM/10 ML SYR IV SCH (09:00)
--- NOTE | 2018-05-20 11:10 | ECHO ---
HEIGHT: 5 ft 10 in WEIGHT: 190 lb 9.6 oz DATE OF STUDY: 05/20/[address]: Steve Bravo MD 2-DIMENSIONAL: YES M.MODE: YES DOPPLER: YES COLOR FLOW: YES TDS: NO PORTABLE: NO DEFINITY: NO BUBBLE STUDY: NO DIAGNOSIS: CONGESTIVE HEART FAILURE CARDIAC HISTORY: CATHERIZATION: NO SURGERY: NO PROSTHETIC VALVE: NO PACEMAKER: NO MEASUREMENTS (cm) DIASTOLIC (NORMALS) SYSTOLIC (NORMALS) IVSd 1.1 (0.6-1.2) LA Diam 4.4 (1.9-4.0) LVEF 20-25% LVIDd 6.1 (3.5-5.7) LVIDs 5.7 (2.0-3.5) %FS 7% LVPWd 1.3 (0.6-1.2) Ao Diam 2.7 (2.0-3.7) 2 DIMENSIONAL ASSESSMENT: RIGHT ATRIUM: NORMAL LEFT ATRIUM: DILATED RIGHT VENTRICLE: NORMAL LEFT VENTRICLE: DILATED TRICUSPID VALVE: NORMAL MITRAL VALVE: NORMAL PULMONIC VALVE: NORMAL AORTIC VALVE: SCLEROSIS PERICARDIAL EFFUSION: VERY SMALL AORTIC ROOT: NORMAL LEFT VENTRICULAR WALL MOTION: SEVERE GLOBAL HYPOKINESIS. DOPPLER/COLOR FLOW: MILD AORTIC AND TRICUSPID REGURGITATION. MILD TO MODERATE MITRAL REGURGITATION. MILD PULMONARY HYPERTENSION. ESTIMATED RIGHT VENTRICULAR SYSTOLIC PRESSURE 40 mmHg. NO AORTIC STENOSIS. COMMENTS: DILATED LEFT ATRIUM AND LEFT VENTRICLE WITH SEVERELY GLOBAL HYPOKINESIS. AORTIC SCLEROSIS WITH NO AORTIC STENOSIS. MILD AORTIC AND TRICUSPID REGURGITATION. MILD TO MODERATE MITRAL REGURGITATION. MILD PULMONARY HYPERTENSION. TECHNOLOGIST: Elvis CHANDELR
--- NOTE | 2018-05-20 12:24 | CON ---
History Of Present Illness: Mr. Rothman is 82. He came to the hospital with the chief complaint of sh ortness of breath. He is short of breath constantly for the last 2 weeks. He has a history of chron ic renal insufficiency and hypertension. There is not a history of coronary heart disease. He seems to have congestive heart failure symptoms with normal ejection fraction. Last echo was in june 2017, EF was above 50% and seems to have LVH and diastolic dysfunction, not much in the way of valvular dy sfunction. When he came to the hospital. His troponins were elevated. The first one was 0.11. The second 1 in 6 hours or more later 0.12 with his creatinine like it is, this is probably chronic elev ation and not indicated of an acute coronary syndrome. His chest x-ray shows cardiomegaly, but it is an AP projection. It may show some vascular redistribution. Medications: Outpatient medications have been doxazosin, hydrocodone, hydrochlorothiazide, isosorbid e, hydroxychloroquine, Protonix, prednisone, allopurinol, and Tessalon Perle. He has anemia, in fact his anemia has gotten worse overnight. Laboratory Data: On presentation, his hemoglobin was 9.7, this morning it is 8.2. He does not have microcytosis. His platelet count is normal. His blood chemistry reveals a creatinine of 3.09, BUN 5 1, blood sugars 106. Lipid panel is quite healthy-looking. Impression: The patient is volume overloaded. I think it would be ellis for us to redo an echocardio gram to see if there is any change. I think he should probably stop IV fluids and give him diuretics . It looks like he has been treated for pneumonia with both azithromycin and ceftriaxone and intrave nous fluids. I think that is likely illness a little bit. I would recommend a complete oral antibiotic regimen and little diuresis for [place] Rothman and repeat echo. Regarding the troponins, I do not see this is an indication of acute coronary syndrome. SH/MODL Voice ID: [id number] Report ID: [id number]
[2018-05-20] MEDS ORDERED: GLUCAGON 1 MG/VIAL IM PRN (15:09)
[2018-05-20] MEDS ORDERED: D50W 25 GM/50 ML SYRINGE IV PRN (15:09)
[2018-05-20] MEDS: FE SULF/FA/VIT B COMP & C TAB PO SCH (16:19)
[2018-05-20] MEDS: CARVEDILOL 3.125 MG TAB PO SCH (16:19)
[2018-05-20] MEDS: FUROSEMIDE 40 MG TABLET PO SCH (16:20)
[2018-05-20 16:44] LABS: Urine Bacteria 20-50 /HPF (NONE SEEN); Urine RBC 20-50 /HPF (NONE SEEN)
[2018-05-20 16:45] LABS: Urine Amorphous Sediment 2+ /HPF (NONE SEEN); Urine Culture Reflex Order REFLEXED
--- NOTE | 2018-05-20 17:15 | PN ---
Date of Progress Note: 05/20/2018 Code Status: Full. Subjective: The patient is seen and examined. Chart reviewed and case discussed with RN and Dr. Donald donaldson. The patient states that he feels somewhat better. Still having some shortness of breath. Medications: List reviewed. Physical Examination: Vital Signs: Temperature 97, heart rate 101, blood pressure 122/80, respirations 16, O2 96% on 2 L v ia nasal cannula. General: Awake, alert, oriented x3 elderly male, in some mild distress, ill-appearing. CV: S1 and S2. Sinus tachycardia. Peripheral pulses present. Respiratory: Diminished breath sounds. Some crackles present. Gastrointestinal: Abdomen is soft, nontender, nondistended. Positive bowel sounds. Extremities: No clubbing, cyanosis, or edema. NEURO: Cranial nerves 2 through 12 intact grossly. No focal neurological deficit. Speech is normal . Laboratory Data: Sodium 144, potassium 3.5, chloride 110, CO2 25, BUN 51, creatinine 3.09, glucose 1 06, lactate is likely from yesterday's 2.9, calcium 8.2. Troponin 0.08. Triglycerides 103, choleste rol 141, LDL 85, HDL 35. WBC 7.2, H and H 8.2, 25.1, platelets 249, neutrophils 80%. Echocardiogram shows EF of 20-25%, severe global hypokinesis, aortic sclerosis, no stenosis, mild pulmonary hyperte nsion. Assessment And Plan: An 82-year-old male with. 1.Wide-complex tachycardia, improved. 2.Acute kidney injury superimposed on chronic kidney disease stage 3. Creatinine has improved. We will continue to monitor. We will consult Nephrology. 3.Chest pain with elevated troponin. Cardiology has evaluated the patient. Dr. Bravo does not fee l that this is acute coronary syndrome, is likely related to his chronic kidney disease. The patient declines any chest pain at this time. We will continue to monitor. Troponins are trending down. 4.Coronary artery disease, mak[place] artery and makah heart, with angina, stable. We will resume home medications. The patient is on aspirin, Plavix, statin. 5.Essential hypertension, stable. 6.Left bundle branch block. 7.Mixed hyperlipidemia. Lipid panel reviewed. Continue statin. 8.Normocytic normochromic anemia. We will continue to monitor H and H. 9.Gastrointestinal and deep venous thrombosis prophylaxis addressed. Plan: 1.Continue diuretics. 2.Systolic heart failure. The patient has systolic dysfunction. EF of 20-25% with global hypokines ia. We will place on fluid restriction. Monitor I's and O's, daily weights. /STER[place] Voice ID: [id number] Report ID: [id number]
--- NOTE | 2018-05-20 19:13 | P.CNS ---
Date of Consult: 05/20/18 Reason for Consult: JORGE Requesting Physician: Addy Orr Chief Complaint: wide complex tachycardia, atrial flutter History of Present Illness: Mr Rothman is an 82 years old male with history of CVA, HTN, DM II, he is a poor historian, who states that about 4 days ago start with progressive SOB associated with some cough. He denied fever, but his daughter says that he has had chills and was warmth to touch. He had an episode of chest pain today, lasting for a few minutes, relieving with Nitro, according to his statement, he has chronic angina. He was brought to ED today, since his SOB got worse. At arrival his temp was 99.4 F O2 sat 99% on RA, EKG shows wide complex tachycardia at about 150 bpm, it was regular, possible A.flutter, BP 84/67. In ER he as successfully cardioverted with 1 electric shock. Then, his symptoms gradually improved. Lab work, shows normal WBC count with elevated lactate and procalcitonin, trop I was elevated as well, worsening renal function. 21:24 This 82 yrs old Black Male presents to ER via Wheelchair with complaints of Breathing gs Difficulty. 21:24 The patient has shortness of breath at rest. Onset: The symptoms/episode began/occurred gs acutely. Duration: The symptoms are continuous, and are steadily getting worse. The patient's shortness of breath has no apparent modifying factors. Associated signs and symptoms: Pertinent negatives: chest pain. Severity of symptoms: At their worst the symptoms were incapacitating in the emergency department the symptoms are unchanged. The patient has experienced similar episodes in the past, a few times. The patient has not recently seen a physician. Allergies No Known Allergies Allergy (Verified 05/20/18 00:29) Home medications list reviewed: Yes Home Medications: Allopurinol 1 tab PO DAILY 03/09/17 Hydroxychloroquine [Plaquenil*] 1 tab PO DAILY 03/09/17 Pantoprazole [Protonix Tab*] 1 tab PO DAILY 03/09/17 Aspirin Chewable [Aspirin Chewable*] 1 tab PO DAILY 05/20/18 Atorvastatin Calcium [Lipitor] 1 tab PO DAILY 05/20/18 Clopidogrel Bisulfate [Plavix*] 1 tab PO DAILY 05/20/18 Ferrous Fumarate [Hemocyte] 1 tab PO BID 05/20/18 Folic Acid 1 tab PO DAILY 05/20/18 Furosemide 1 tab PO BID 05/20/18 Hydrocodone 7.5/APAP 325 [[place] 7.5/325 mg*] 1 tab PO BID 05/20/18 Metoprolol Tartrate [Lopressor] 1 tab PO BID 05/20/18 Mirtazapine [Remeron*] 1 tab PO BEDTIME 05/20/18 Nitroglycerin 1 tab SL PRN PRN 05/20/18 Potassium Chloride 2 tab PO DAILY 05/20/18 - Past Medical/Surgical History Diabetic: No -: HYPERTENSION -: NIDDM -: CVA -: BPH -: CHRONIC LEG PAIN -: CARDIAC STENT -: APPENDECTOMY -: PROSTATE SURGERY - Social History Alcohol use: No CD- Drugs: No Caffeine use: No Place of Residence: Home Review of Systems 10-point ROS is otherwise unremarkable General: Weakness, Malaise Respiratory: SOB with Excertion Physical Examination Temp Pulse Resp BP Pulse Ox 97.4 F 102 H 16 107/61 93 05/20/18 16:00 05/20/18 16:20 05/20/18 16:00 05/20/18 16:20 05/20/18 16:00 General: Alert, In no apparent distress, Oriented x3, Cooperative HEENT: Atraumatic Neck: Supple Respiratory: Clear to auscultation bilaterally Cardiovascular: No edema, Regular rate/rhythm, No rubs Gastrointestinal: Soft and benign, Non-distended, No guarding Musculoskeletal: No clubbing, No contractures Integumentary: No rashes, No cyanosis Neurological: Normal speech Laboratory Data (last 24 hrs) 05/19/18 20:45: PT 14.3 H, INR 1.22, APTT 29.4 05/19/18 20:45: WBC 8.9, Hgb 9.7 L, Hct 29.8 L, Plt Count 281 05/19/18 20:45: Sodium 142, Potassium 3.4 L, BUN 52 H, Creatinine 3.57 H, Glucose 169 H, Total Bilirubin 0.8, AST 17, ALT 20, Alkaline Phosphatase 80, Lipase 95 Imagings Data: EXAM DESCRIPTION: Kayley Single View05/19/2018 9:22 pm CLINICAL HISTORY: Shortness of breath COMPARISON: July 2017 FINDINGS: Upper lobe vessels are prominent indicative of pulmonary venous hypertension The lungs appear clear of acute infiltrate. The heart is moderately to markedly enlarged. LEFT VENTRICULAR WALL MOTION: SEVERE GLOBAL HYPOKINESIS. DOPPLER/COLOR FLOW: MILD AORTIC AND TRICUSPID REGURGITATION. MILD TO MODERATE MITRAL REGURGITATION. MILD PULMONARY HYPERTENSION. ESTIMATED RIGHT VENTRICULAR SYSTOLIC PRESSURE 40 mmHg. NO AORTIC STENOSIS. COMMENTS: DILATED LEFT ATRIUM AND LEFT VENTRICLE WITH SEVERELY GLOBAL HYPOKINESIS. AORTIC SCLEROSIS WITH NO AORTIC STENOSIS. MILD AORTIC AND TRICUSPID REGURGITATION. MILD TO MODERATE MITRAL REGURGITATION. MILD PULMONARY HYPERTENSION. Conclusions/Impression: A/ JORGE may be due to CRS. Hypokalemia. CKD III/IV with proteinuria. Baseline? Systolic CHF, chronic. LVEF 20-25%. HTN with CKD/ CHF. DM II with CKD. Anemia in chronic illness. BPH/ LUTS. Hx prostate cancer. Bilateral simple and complex renal cysts. P/ Continue current POC and Medications. Agree with diuresis. Check and renal and bladder ultrasound. No NSAIDs. AM labs. Daily weight. Thank you kindly for the consultation.
[2018-05-20] MEDS ORDERED: METOPROLOL TARTRATE PO SCH (21:00)
[2018-05-20] MEDS ORDERED: HOME MED 1 EA UNK (Furosemide [Furosemide] 1 TAB) PO SCH (21:00)
[2018-05-20] MEDS ORDERED: ATORVASTATIN 20 MG TAB PO SCH (21:00)
[2018-05-20] MEDS ORDERED: FERROUS FUMARATE PO SCH (21:00)
--- NOTE | 2018-05-20 21:23 | RAD REPORT ---
EXAM DESCRIPTION: US - Renal Ultrasound-Complete - 05/20/2018 9:05 pm CLINICAL HISTORY: JORGE/ CKD. Multiple Cysts. BPH. Hx prostate ca. COMPARISON: Renal Ultrasound-Complete dated 03/07/2017; Urinary Bladder dated 05/20/2018Renal Ultrasoun d-Complete dated 03/07/2017; Urinary Bladder dated 05/20/2018 FINDINGS: Bilateral renal sonography and urinary bladder sonography pre and postvoid was performed. Both kidneys are significantly echogenic. The right kidney measures 10.4 x 6.3 x 5.2 cm. No hydronephrosis, focal mass or perinephric fluid. 3. 6 x 3.1 cm cyst is present. The left kidney measures 11.8 x 5.9 x 4.8 cm. No hydronephrosis, focal mass or perinephric fluid. Prevoid bladder volume is 55 mL. Postvoid bladder volume is 7 mL. No bladder mass or ureterocele appr eciated. IMPRESSION: Echogenic kidneys bilaterally compatible with underlying medical renal disease. Trace postvoid residual.
[2018-05-20] MEDS: HYDROCODONE/APAP 7.5/325 MG TAB PO SCH (22:25)
[2018-05-20] MEDS: HYDRALAZINE HCL 10 MG TABLET PO SCH (22:25)
[2018-05-20] MEDS: METOPROLOL TAR 50 MG TAB PO SCH (22:25)
[2018-05-21] MEDS: CARVEDILOL 3.125 MG TAB PO SCH ×2 (06:01→16:26)
[2018-05-21 06:43] LABS: Absolute Lymphocytes (CBC) 0.7 K/uL (0.7-4.9); Absolute Monocytes 0.7 K/uL (0.1-1.3); Absolute Neutrophil 5.6 K/uL (1.8-8.0); Basophils % 0.5 % (0-1.3); Hematocrit 24.8 % (39.6-49.0); Lymphocytes % 9.1 % (15.3-44.8); MPV 8.8 fL (7.6-11.3); Monocytes % 9.9 % (3.3-12.3); RBC Red Blood Cell Count 2.92 M/uL (4.33-5.43)
[2018-05-21 06:56] LABS: Albumin 2.9 g/dL (3.4-5.0); Bilirubin Total 0.4 mg/dL (0.2-1.0); Magnesium 2.6 mg/dL (1.8-2.4); Phosphorus 3.9 mg/dL (2.5-4.9); Potassium 3.6 mmol/L (3.5-5.1); Protein, Total 6.7 g/dL (6.4-8.2)
[2018-05-21] MEDS ORDERED: POTASSIUM CL SA 10 MEQ TAB PO ONE (07:16)
[2018-05-21] MEDS: INSULIN -REGULAR HUMAN 50 UNIT/0.5 ML ML SQ SCH ×3 (07:30→16:25)
[2018-05-21] MEDS ORDERED: PANTOPRAZOLE 40MG TABLET PO SCH (07:30)
[2018-05-21] MEDS ORDERED: FOLIC ACID 1 MG TABLET PO SCH (09:00)
[2018-05-21] MEDS ORDERED: FUROSEMIDE 40 MG TABLET PO SCH (09:00)
[2018-05-21] MEDS ORDERED: CLOPIDOGREL 75 MG TABLET PO SCH (09:00)
[2018-05-21] MEDS ORDERED: ISOSORBIDE MONO SR 30 MG TAB PO SCH (09:00)
[2018-05-21] MEDS ORDERED: HYDROXYCHLOROQUINE 200MG TAB PO SCH (09:00)
[2018-05-21] MEDS ORDERED: POTASSIUM CL SA 10 MEQ TAB PO SCH (09:00)
[2018-05-21] MEDS ORDERED: POTASSIUM CHLORIDE PO SCH (09:00)
[2018-05-21] MEDS ORDERED: ALLOPURINOL 300 MG TAB PO SCH (09:00)
[2018-05-21] MEDS: HYDROCODONE/APAP 7.5/325 MG TAB PO SCH (09:08)
[2018-05-21] MEDS: METOPROLOL TAR 50 MG TAB PO SCH (09:09)
[2018-05-21] MEDS: FE SULF/FA/VIT B COMP & C TAB PO SCH ×2 (09:10→16:26)
[2018-05-21] MEDS: ASPIRIN 81 MG CHEWABLE TABLET PO SCH (09:10)
[2018-05-21] MEDS: FUROSEMIDE 40 MG TABLET PO SCH ×2 (09:10→16:25)
[2018-05-21] MEDS: HYDRALAZINE HCL 10 MG TABLET PO SCH (09:11)
--- NOTE | 2018-05-21 13:01 | PN ---
Mr. Rothman I think at this point is stable enough to be discharged. He has severe renal insufficiency , heart failure, not able to tolerate a lot of our usual heart failure medicines. I do not think he ever had pneumonia, and I am in favor of him being discharged fairly soon on the new medication, beta -eamon, and hydralazine. ZEFERINO/STERLING Voice ID: [id number] Report ID: [id number]
--- NOTE | 2018-05-21 16:49 | CON ---
History Of Present Illness: This is an 82-year-old male. I was consulted for blood cultures being p ositive / gram-positive rods. The patient is unable to give any history at this time. We will com e back to see the patient. WBC 7.4, hemoglobin 7.9, platelets are 257. Chemistry shows sodium 148, potassium 3.6, chloride 114, bicarb 26, BUN 49, creatinine 2.7. Glucose is 93. The patient initially came in with shortness of breath and cough. Assessment And Plan: Bacteremia versus contamination. The patient currently being treated with anti biotic on board. We will follow the patient and make addendum to the note after examining patient an d talking to the patient in more detail. NF/MODL Voice ID: [id number] Report ID: [id number]
[2018-05-21 16:54] VITALS: O2SAT 94
[2018-05-21 18:17] VITALS: BP 142/84; TEMP 96.6
[2018-05-21] MEDS ORDERED: POTASSIUM 25 MEQ EFFERV TAB PO ONE (21:00)
--- NOTE | 2018-05-21 22:25 | P.PN ---
Date of Service: 05/21/18 Vital Signs Temp Pulse Resp BP Pulse Ox 96.6 F L 81 18 142/84 H 95 05/21/18 16:00 05/21/18 16:00 05/21/18 16:00 05/21/18 16:00 05/21/18 16:00 Medications Acetaminophen (Tylenol -Extra Strength) 500 mg PO Q4HP PRN PRN Reason: TEMP > 100' F Stop: 06/19/18 00:30 Hydrocodone Bitart/Acetaminophen ([place] 7.5/325 Mg) 1 tab PO BID SERG Stop: 06/19/18 21:01 Last Admin: 05/21/18 09:08 Dose: 1 tab Allopurinol (Zyloprim) 300 mg PO DAILY SERG Stop: 06/20/18 09:01 Last Admin: 05/21/18 09:11 Dose: 300 mg Aspirin (Aspirin Chewable) 81 mg PO DAILY SERG Stop: 06/19/18 09:01 Last Admin: 05/21/18 09:10 Dose: 81 mg Atorvastatin Calcium (Lipitor) 20 mg PO BEDTIME SERG Stop: 06/19/18 21:01 Last Admin: 05/20/18 22:25 Dose: 20 mg Carvedilol (Coreg) 3.125 mg PO BID 6AM 6PM SERG Stop: 06/19/18 18:01 Last Admin: 05/21/18 16:26 Dose: 3.125 mg Clopidogrel Bisulfate (Plavix) 75 mg PO DAILY SERG Stop: 06/20/18 09:01 Last Admin: 05/21/18 09:08 Dose: 75 mg Dextrose (Dextrose 50% Syringe) 12.5 gm IV PRN PRN PRN Reason: HYPOGLYCEMIA PROTOCOL Stop: 06/19/18 15:10 Folic Acid (Folic Acid) 1 mg PO DAILY SERG Stop: 06/20/18 09:01 Last Admin: 05/21/18 09:45 Dose: 1 mg Furosemide (Lasix) 80 mg PO BIDL SERG Stop: 06/19/18 17:01 Last Admin: 05/21/18 16:25 Dose: 80 mg Glucagon (Glucagen) 1 mg IM 1X PRN PRN Reason: HYPOGLYCEMIA Stop: 06/19/18 15:10 Hydralazine HCl (Apresoline) 10 mg PO BID SERG Stop: 06/19/18 21:01 Last Admin: 05/21/18 09:11 Dose: 10 mg Hydroxychloroquine Sulfate (Plaquenil) 200 mg PO DAILY [facility] Stop: 06/20/18 09:01 Last Admin: 05/21/18 09:45 Dose: 200 mg Insulin Human Regular (Novolin -R) 0 unit SQ ACHS [facility]; Protocol Stop: 06/19/18 07:31 Last Admin: 05/21/18 16:25 Dose: Not Given Isosorbide Mononitrate (Imdur) 30 mg PO DAILY [facility] Stop: 06/20/18 09:01 Last Admin: 05/21/18 09:08 Dose: 30 mg Metoprolol Tartrate (Lopressor) 100 mg PO BID [facility] Stop: 06/19/18 21:01 Last Admin: 05/21/18 09:09 Dose: 100 mg Multivitamins/Iron (Hemocyte Plus) 1 tab PO BIDWM [facility] Stop: 06/19/18 17:01 Last Admin: 05/21/18 16:26 Dose: 1 tab Pantoprazole Sodium (Protonix Tab) 40 mg PO ACB [facility] Stop: 06/20/18 07:31 Last Admin: 05/21/18 09:10 Dose: 40 mg Potassium Chloride (Klor-Con 10 Meq Tab) 40 meq PO DAILY [facility] Stop: 06/20/18 09:01 Last Admin: 05/21/18 09:11 Dose: 40 meq Sodium Chloride (Normal Saline Flush) 10 ml IV BID [facility] Stop: 06/19/18 09:01 Last Admin: 05/21/18 09:11 Dose: 10 ml Microbiology Results 05/19/18 15:04 Clean Catch Urine [place] Count - Preliminary <10,000 CFU/ML. 05/19/18 21:47 Blood - Blood Aerobic Blood Culture - Preliminary 05/19/18 21:47 Blood - Blood Gram Stain - Preliminary 05/19/18 21:47 Blood - Blood Anaerobic Blood Culture - Preliminary No growth in 24 hours. 05/19/18 21:54 Blood - Blood Aerobic Blood Culture - Preliminary No growth in 24 hours. 05/19/18 21:54 Blood - Blood Anaerobic Blood Culture - Preliminary No growth in 24 hours. 05/19/18 21:40 Nasopharnyx Influenza Type A Antigen Screen - Final 05/19/18 21:40 Nasopharnyx Influenza Type B Antigen Screen - Final Assessment/ Plan: Nephrology. Feeling better. Wants to go home. CPS improved without CP or SOB. +SWEET No acute events overnight. Vitals, medications, blood work and imaging reviewed in the chart. General: Alert, In no apparent distress, Oriented x3, Cooperative HEENT: Atraumatic Neck: Supple Respiratory: Clear to auscultation bilaterally Cardiovascular: No edema, Regular rate/rhythm, No rubs Gastrointestinal: Soft and benign, Non-distended, No guarding Musculoskeletal: No clubbing, No contractures Integumentary: No rashes, No cyanosis Neurological: Normal speech Laboratory Data (last 24 hrs) 05/19/18 20:45: PT 14.3 H, INR 1.22, APTT 29.4 05/19/18 20:45: WBC 8.9, Hgb 9.7 L, Hct 29.8 L, Plt Count 281 05/19/18 20:45: Sodium 142, Potassium 3.4 L, BUN 52 H, Creatinine 3.57 H, Glucose 169 H, Total Bilirubin 0.8, AST 17, ALT 20, Alkaline Phosphatase 80, Lipase 95 Imagings Data: EXAM DESCRIPTION: Kayley Single View05/19/2018 9:22 pm CLINICAL HISTORY: Shortness of breath COMPARISON: July 2017 FINDINGS: Upper lobe vessels are prominent indicative of pulmonary venous hypertension The lungs appear clear of acute infiltrate. The heart is moderately to markedly enlarged. LEFT VENTRICULAR WALL MOTION: SEVERE GLOBAL HYPOKINESIS. DOPPLER/COLOR FLOW: MILD AORTIC AND TRICUSPID REGURGITATION. MILD TO MODERATE MITRAL REGURGITATION. MILD PULMONARY HYPERTENSION. ESTIMATED RIGHT VENTRICULAR SYSTOLIC PRESSURE 40 mmHg. NO AORTIC STENOSIS. COMMENTS: DILATED LEFT ATRIUM AND LEFT VENTRICLE WITH SEVERELY GLOBAL HYPOKINESIS. AORTIC SCLEROSIS WITH NO AORTIC STENOSIS. MILD AORTIC AND TRICUSPID REGURGITATION. MILD TO MODERATE MITRAL REGURGITATION. MILD PULMONARY HYPERTENSION. Conclusions/Impression: A/ JORGE may be due to CRS. Hypokalemia. CKD III/IV with proteinuria. Baseline? Systolic CHF, chronic. LVEF 20-25%. HTN with CKD/ CHF. DM II with CKD. Anemia in chronic illness. BPH/ LUTS. Hx prostate cancer. Bilateral simple and complex renal cysts. P/ Continue current POC and Medications. Agree with diuresis. Give a dose of spironolactone. Encourage free water intake. No NSAIDs. AM labs. Daily weight.
[2018-05-21] MEDS ORDERED: SPIRONOLACTONE 25 MG TABLET PO ONE (22:30)
--- NOTE | 2018-05-22 06:25 | DS ---
Date of Discharge: 05/21/2018 Extension Service Advisor: Dr. Bravo with cardiology, Dr. Ingram with Infectious Disease, Dr. Kumar with Nephrology. Admitting Diagnoses: 1. Acute kidney injury, superimposed on chronic kidney disease stage 3. 2. Wide complex tachycardia. 3. Chest pain. 4. Coronary artery disease, [place] artery and [place] heart, with unstable angina. 5. Left bundle branch block. 6. Essential hypertension. Discharge Diagnoses: 1. Wide-complex tachycardia, resolved. 2. Acute kidney injury, superimposed on chronic kidney disease stage 3, improved. 3. Chest pain with elevated troponin, not felt to be acute coronary syndrome. 4. Coronary artery disease, [place] artery and [place] heart with angina, stable. 5. Essential hypertension, stable. 6. Left bundle branch block. 7. Mixed hyperlipidemia. 8. Normocytic normochromic anemia. Hemoglobin and hematocrit are stable. 9. Systolic heart failure. Ejection fraction 20% to 25%. Hospital Course: The patient is an 82-year-old male with past medical history of hypertension, CVA, diabetes, who comes in with progressive shortness of breath and cough. The patient was also found to have wide-complex tachycardia, rate of 150, possibly atrial flutter. His blood pressure was low at 84/67. The patient was cardioverted with electrical shock in the ER. His workup showed normal white blood cell count, however his lactate and procalcitonin were elevated. The patient's troponin was also elevated. Cardiology was consulted due to the arrhythmia. Dr. Bravo did not feel that this was related to acute coronary syndrome. His potassium was low and was replaced. The patient also had some acute on chronic kidney injury with creatinine above baseline. The patient was seen by admission discharge rn, Dr. Kumar, and his creatinine improved with treatment. The patient was initially on IV fluids and IV antibiotics. However, his chest x-ray findings were felt to be due to congestive heart failure and pulmonary edema. IV fluids and antibiotics were discontinued. His echocardiogram showed an EF of 20% to 25% with severe global hypokinesis. He was diuresed and had significant improvement. The patient was not able to be weaned off oxygen and was in process of having home O2 set up. He was discharged after being cleared from Cardiology standpoint and Nephrology standpoint. Followup: He will need to follow up with primary care physician in 2-3 days. Follow up with admission discharge rn, Dr. Kumar, in 2 weeks. Follow up with industrial engineering manager, Dr. Bravo, in 2 weeks. Return to ER for worsening condition. Activity: Fall precautions. Medications: As per medication reconciliation list. Physical Examination: General: Awake, alert, oriented, no acute distress. CV: S1, S2. Respiratory: Moving air well bilaterally. Abdomen: Abdomen is soft, nontender, nondistended. Positive bowel sounds. Extremities: No clubbing, cyanosis, edema. Neurologic: Nonfocal. ADDENDUM: Patient required home oxygen prior to discharge however he decided to leave AMA prior to O2 being set up. /STERLING Voice ID: [id number] Report ID: [id number] MTDD
--- NOTE | 2018-05-22 08:01 | RAD REPORT ---
EXAM DESCRIPTION: US - Urinary Bladder - 05/20/2018 9:05 pm CLINICAL HISTORY: JORGE/ CKD. Multiple Cysts. BPH. Hx prostate ca. COMPARISON: Renal Ultrasound-Complete dated 03/07/2017; Urinary Bladder dated 05/20/2018Renal Ultrasoun d-Complete dated 03/07/2017; Urinary Bladder dated 05/20/2018 FINDINGS: Bilateral renal sonography and urinary bladder sonography pre and postvoid was performed. Both kidneys are significantly echogenic. The right kidney measures 10.4 x 6.3 x 5.2 cm . No hydronephrosis, focal mass or perinephric fluid. 3 .6 x 3.1 cm cyst is present. The left kidney measures 11.8 x 5.9 x 4.8 cm . No hydronephrosis, focal mass or perinephric fluid. Prevoid bladder volume is 55 mL. Postvoid bladder volume is 7 mL. No bladder mass or ureterocele appr eciated. IMPRESSION: Echogenic kidneys bilaterally compatible with underlying medical renal disease. Trace postvoid residual.
--- NOTE | 2018-05-27 11:10 | EKG ---
Test Date: 2018-05-19 Test Time: 20:41:08 Program Schedule Clerk: ANDI MEASUREMENT RESULTS: Intervals: Rate: 170 MN: 88 QRSD: 152 QT: 310 QTc: 521 [place]: P: [place]: 88 QRS: 167 T: 166 INTERPRETIVE STATEMENTS: Atrial fibrillation with rapid ventricular response Left bundle branch block Abnormal ECG Compared to ECG 07/26/2017 10:52:41 Heart rate has increased Electronically Signed On 05-20-18 17:03:38 CDT by Steve Bravo
--- NOTE | 2018-05-27 11:10 | EKG ---
Test Date: 2018-05-19 Test Time: 20:52:04 Tin Dipper: ANDI MEASUREMENT RESULTS: Intervals: Rate: 108 WA: 184 QRSD: 154 QT: 374 QTc: 501 [place]: P: 61 [place]: 184 QRS: 248 T: 87 INTERPRETIVE STATEMENTS: Atrial fibrillation with rapid ventricular response Left bundle branch block Abnormal ECG Compared to ECG 05/19/2018 20:41:08 Heart rate has increased Electronically Signed On 05-20-18 17:03:03 CDT by Steve Bravo
== END 2018-05-21 20:10 | disposition left against medical advice (07) ==
LOC: ER 20:24 → ERHOLD 22:32 → 4TH 23:19
PROVIDERS: ADMIT Internal Medicine; ATTEND Internal Medicine
PROC: 5A2204Z Restoration of Cardiac Rhythm, Single (ICD-10-PCS; principal; 2018-05-19)
DX: R00.0 Tachycardia, unspecified (principal); I13.0 Hypertensive heart and chronic kidney disease with heart failure and stage 1 through stage 4 chronic kidney disease, or unspecified chronic kidney disease; N18.3 Chronic kidney disease, stage 3 (moderate); I50.22 Chronic systolic (congestive) heart failure; N17.9 Acute kidney failure, unspecified; I25.119 Atherosclerotic heart disease of native coronary artery with unspecified angina pectoris; I44.7 Left bundle-branch block, unspecified; D64.9 Anemia, unspecified; N40.1 Benign prostatic hyperplasia with lower urinary tract symptoms; N28.1 Cyst of kidney, acquired; E78.5 Hyperlipidemia, unspecified; Z95.5 Presence of coronary angioplasty implant and graft; Z86.73 Personal history of transient ischemic attack (TIA), and cerebral infarction without residual deficits
CPT/HCPCS: 92960 ×2; 96365; 96361; 93005 ×2; 93306; 87040 ×2; 87088; 85025 ×3; 87086; 80048 ×2; 36415 ×2; 83735; 82550; 87205; 84100; 85610; 80061; 82962 ×7; 80076; 84550; 83605 ×2; 85730; 83036; 81015; 84484 ×4; 82553; 83690; 80053; 84145; 87804 ×2; 71045; 76857; 76770; 94760 ×4; 96375; 99291; 96366; J0456 ×2; J2250; J0696; J0692; J7030 ×2; G0378 ×2